=== PATIENT | male | born 1970 | race Caucasian/White ===

== ENCOUNTER 2020-03-31 01:00 | Outpatient (CLI) | payer BC, SELFPAY ==
[2020-03-31 19:42] LABS: SARS-CoV-2 RNA PCR Negative
== END 2020-03-31 01:01 | disposition home or self-care (01) ==
LOC: ANHCOVIDDT 01:00
PROVIDERS: PCP Student in an Organized Health Care Education/Training Program; Visit Provider Internal Medicine Gastroenterology
DX: Z01.812 Encounter for preprocedural laboratory examination (principal); Z20.822 Contact with and (suspected) exposure to COVID-19
CPT/HCPCS: C9803; U0003

== ENCOUNTER 2020-04-03 00:21 | Day surgery (SDC) | payer BC, SELFPAY ==
[2020-03-23 09:35] VITALS: BMI 25.8
[2020-04-03 09:22] VITALS: BP 120/69; PULSE 93; RESP 18; TEMP 36.6; O2SAT 99
[2020-04-03] MEDS: LACTATED RINGERS 1,000 ML 150 ML IV CONT (09:30)
--- NOTE | 2020-04-03 10:19 | WPDANESEPPF ---
Anes - Initial Pre Proc Eval Procedure: Operation Date: 04/03/20 10:30 Proposed Procedures p Screening Colonoscopy - Feliz Rosas MD Date/Time: 04/03/20 10:19 Surgeon: Feliz Rosas MD Pre Op Diagnosis: neoplasm screening Patient Data Age: 50 Gender: M Height: 5 ft 11 in Weight: 83.7 kg Last Vital Signs Temp 97.8 F 04/03/20 09:22 Pulse 93 04/03/20 09:22 Resp 18 04/03/20 09:22 BP 120/69 04/03/20 09:22 Pulse Ox 99 04/03/20 09:22 Allergies Allergy/AdvReac Type Severity Reaction Status Date / Time Penicillins Allergy Mild Rash Verified 04/03/20 09:21 Home Medications Medication Instructions Recorded Confirmed Type No Home Medications 03/23/20 04/03/20 History Patient hx anesthesia problems: none Family hx anesthesia problems: none PMFSH Past Medical History Medical History Elevated LDL cholesterol level Surgical History Surgical History History of Achilles tendon repair 2006 History of neck surgery Multiple surgery on muscles in neck [id number] Family History Family History Father Non-Hodgkin lymphoma Myelodysplasia (myelodysplastic syndrome) Actinic keratoses Grandparent Malignant neoplasm of prostate Social History Social History Smoking status: Never smoker Alcohol intake: never Substance use: never Substance use type: does not use Living arrangements: with family Spiritual care concerns: No Anes - Eval Final PreProcedure Day of Procedure 04/03/20 10:19 Patient weight: normal Heart: regular rate and rhythm Lungs: clear to auscultation Airway: Mallampati scale class II Neurological: alert and oriented ASA classification: II Emergent: no Anesthetic plan: proceed Anesthesia type and monitoring: general GIVS and standard monitoring Informed Consent: The patient's anesthetic plan and its attendant risks and benefits were discussed with the patient/family/POA. Questions were solicited and answers provided to the satisfaction of the patient/family/POA.
--- NOTE | 2020-04-03 10:23 | PM.HPGS ---
History of Present Illness History of Present Illness Consent: Risks, benefits, and alternatives have been discussed and questions answered. Patient agrees to proceed with procedure. Chief complaint: neoplasm screening Narrative: Miguel Angel Hewitt is a 50 year old male here for first screening colonoscopy Review of Systems Constitutional: Constitutional: Denies headache(s) and Denies weakness Eyes: Eyes: Denies blurry vision ENT: Reports Normal hearing present, Denies headache(s) and Denies neck pain Cardiovascular: Cardiovascular: Denies chest pain and Denies dyspnea Respiratory: Respiratory: Denies dyspnea Gastrointestinal: Gastrointestinal: Reports no additional gastrointestinal complaints Genitourinary: Genitourinary: Denies dysuria Musculoskeletal: Musculoskeletal: Denies neck pain Integumentary/Breasts: Skin/Breast: Denies dry skin Neurologic: Reports Normal hearing present, Denies headache(s) and Denies weakness Psychiatric: Psychiatric: Denies anxiety Endocrine: Endocrine: Denies change in body appearance Hematologic/Lymphatic: Hematologic/Lymphatic: Denies easy bleeding Allergic/Immunologic: Allergic/Immunologic: Denies urticaria [facility] Past Medical History Medical History Elevated LDL cholesterol level Surgical History Surgical History History of Achilles tendon repair 2006 History of neck surgery Multiple surgery on muscles in neck [id number] Family History Family History Father Non-Hodgkin lymphoma Myelodysplasia (myelodysplastic syndrome) Actinic keratoses Grandparent Malignant neoplasm of prostate Social History Social History Smoking status: Never smoker Alcohol intake: never Substance use: never Substance use type: does not use Living arrangements: with family Spiritual care concerns: No Meds Home Medications and Allergies Home Medications Medication Instructions Recorded Confirmed Type No Home Medications 03/23/20 04/03/20 History Allergies Allergy/AdvReac Type Severity Reaction Status Date / Time Penicillins Allergy Mild Rash Verified 04/03/20 09:21 Vital Signs Vital Signs - 24 hr 04/03/20 09:22 Temperature 97.8 F Pulse Rate 93 Respiratory Rate 18 Blood Pressure 120/69 Pulse Oximetry 99 Exam Const: General: comfortable and no acute distress HENMT: General nose exam: Normal nares present Eyes: General: appearance normal, both eyes and all related structures Neck: Neck: no JVD Resp: Auscultation: clear to auscultation bilaterally Cardio: Rate: regular rate Rhythm: regular rhythm GI: Inspection: non-distended GI Palp: Yes Soft to palpation Skin: General skin exam: normal color Neuro: General: gait normal Speech: normal speech Extrem: General: normal to inspection Psych: Mental Status: mental status grossly normal Assessment and Plan Assessment and plan (1) Colon cancer screening: Code(s): Z12.11 - Encounter for screening for malignant neoplasm of colon Status: Acute Assessment and Plan: will proceed with colonoscopy
[2020-04-03 10:51] VITALS: BP 99/62; PULSE 68; RESP 22; O2SAT 98
[2020-04-03 11:01] VITALS: BP 101/84; PULSE 67; RESP 18; O2SAT 98
[2020-04-03 11:11] VITALS: BP 113/75; PULSE 89; RESP 17; O2SAT 100
== END 2020-04-03 11:36 | disposition home or self-care (01) ==
PROVIDERS: PCP Student in an Organized Health Care Education/Training Program; Visit Provider Internal Medicine Gastroenterology
PROC: 0DJD8ZZ Inspection of Lower Intestinal Tract, Via Natural or Artificial Opening Endoscopic (ICD-10-PCS; CPT 45378; principal; 2020-04-03 10:30)
DX: Z12.11 Encounter for screening for malignant neoplasm of colon (principal); E78.00 Pure hypercholesterolemia, unspecified; K63.5 Polyp of colon; K57.30 Diverticulosis of large intestine without perforation or abscess without bleeding; K64.8 Other hemorrhoids; D12.2 Benign neoplasm of ascending colon; D12.3 Benign neoplasm of transverse colon
CPT/HCPCS: 45380; 45385; 88305; J2001; J2704; J7120